=== PATIENT | male | born 1935 | race Caucasian/White ===

== ENCOUNTER 2022-12-24 07:57 | Observation (INO) | payer MEDICARE, SELFPAY ==
[2022-12-24] VITALS (16 sets, daily range): BP systolic 127–159; BP diastolic 64–83; PULSE 69–85; RESP 11–18; TEMP 36.6–36.7; O2SAT 90–98
--- NOTE | ~2022-12-24 | US_ITS ---
EXAMINATION: US carotid duplex BI DATE: 12/25/2022 12:38 INDICATION: Syncope TECHNIQUE: Grayscale, color Doppler, and pulsed Doppler images of the cervical carotid arteries were obtained. The degree of vessel stenosis is placed in one of the following categories: normal, <50%, 5 0-69%, >=70% but less than near-occlusion, near-occlusion, or total occlusion. Note that percent sten osis relative to normal distal artery lumen diameter is indirectly measured from velocity measurement s as described by Sheldon, et al. Radiology 2003; 229:340-346. COMPARISON: None. FINDINGS: RIGHT: The right common carotid artery (CCA) peak systolic velocity (PSV) is 91 cm/s. The right internal car otid artery (ICA) PSV is 65 cm/s. The right ICA end-diastolic velocity (EDV) is 14 cm/s. The right IC A/CCA PSV ratio is 0.7. Grayscale and color Doppler images yield an estimate of <50% diameter reducti on from plaque in the ICA. The external carotid artery (ECA) PSV is 112 cm/s. There is antegrade flow in the right vertebral artery. LEFT: The left CCA PSV is 98 cm/s. The left ICA PSV is 88 cm/s. The left ICA EDV is 18 cm/s. The left ICA/C CA PSV ratio is 0.9. Grayscale and color Doppler images yield an estimate of <50% diameter reduction from plaque in the ICA. The ECA PSV is 86 cm/s. There is antegrade flow in the left vertebral artery. IMPRESSION: 1. <50% stenosis in the right internal carotid artery. 2. <50% stenosis in the left internal carotid artery. Reviewed, dictated and finalized at location A.
--- NOTE | ~2022-12-24 | US_ITS ---
EXAMINATION: US art doppler w evangelist WOODARD DATE: 12/26/2022 14:47 INDICATION: Foot ulcers TECHNIQUE: Segmental pressures and plethysmographic and Doppler waveforms of the brachial and lower e xtremity arteries were obtained. COMPARISON: None. FINDINGS: Right and left brachial artery pressures of 132 mm Hg and 113 mm Hg, respectively, are concordant (no rmal difference <= 30 mmHg). The right and left high-thigh pressure indices unable to be obtained due to inability to occlude the vessels throughout either lower limb with the exception of at the right posterior tibial artery. Bilateral toe pressures were unable to be obtained due to swelling of the to es. The right ankle-brachial index (JEWELL) is 0.93 (normal >= 0.9-1) based solely upon the pressure in the right posterior tibial artery. Arterial waveforms are biphasic with brisk systolic upstrokes througho ut the arteries of the right lower limb. The left JEWELL is unable to be obtained due to inability to occlude the vessels at the left ankle. Constance rial waveforms are biphasic with brisk systolic upstrokes carotid arteries of the left lower limb. IMPRESSION: 1. Pressures unable to be obtained throughout either lower limb with the exception of the right poste rior tibial artery due to inability to occlude vessels and at the great toes due to significant steno sis. Right JEWELL within normal limits on only the impression the right posterior tibial artery. 2. Biphasic waveforms with brisk systolic upstrokes throughout the arteries of both lower limbs. Reviewed, dictated and finalized at location A. IMPRESSION: 1. Pressures unable to be obtained throughout either lower limb with the except ion of the right posterior tibial artery due to inability to occlude vessels an d at the great toes due to significant stenosis. Right JEWELL within normal limits on only the impression the right posterior tibial artery. 2. Biphasic waveforms with brisk systolic upstrokes throughout the arteries of both lower limbs.
--- NOTE | ~2022-12-24 | XR_ITS ---
EXAMINATION: XR knee RT min 4V DATE: 12/24/2022 09:34 INDICATION: Right knee pain, bruising and skin tear post fall TECHNIQUE: Anteroposterior, 2 oblique and crosstable lateral views of the right knee were obtained COMPARISON: None. FINDINGS: Alignment is normal. No fracture. At least moderate severity tricompartmental osteoarthritis with me dial and patellofemoral compartment predominance. No joint effusion/layering lipohemarthrosis. Soft t issue swelling with subcutaneous edema about the anterior and lateral aspects of the knee. No radiop aque foreign bodies. IMPRESSION: 1. 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 Reviewed, dictated and finalized at location A.
--- NOTE | ~2022-12-24 | US_ITS ---
EXAMINATION: US venous doppler [facility] DATE: 12/26/2022 14:47 INDICATION: Bilateral lower limb edema TECHNIQUE: Bradford scale images without and with compression and Doppler images of the bilateral lower e xtremity veins were obtained. COMPARISON: None FINDINGS: The bilateral peroneal veins are not visualized due to edema. The right common femoral vein, profunda femoral vein, femoral vein, popliteal vein, posterior tibial veins, and greater saphenous vein are patent. The left common femoral vein, profunda femoral vein, femoral vein, popliteal vein, posterior tibial v eins, and greater saphenous vein are patent. IMPRESSION: 1. Patent bilateral lower extremity veins. No evidence of deep venous thrombosis. Bilateral peroneal veins not visualized due to edema. Reviewed, dictated and finalized at location B. IMPRESSION: 1. Patent bilateral lower extremity veins. No evidence of deep venous thrombosi s. Bilateral peroneal veins not visualized due to edema.
--- NOTE | ~2022-12-24 | XR_ITS ---
EXAMINATION: XR chest 1V portable INDICATION: Weakness, transient alteration of awareness TECHNIQUE: Portable AP chest at 0830 hours COMPARISON: 03/09/2018 FINDINGS: The lungs are free of acute opacities. No pleural effusion or pneumothorax. A calcified nod ule of the left lower lobe is consistent with old granulomatous disease. The cardiomediastinal silhou ette is normal. Surgical changes are noted in the cervical spine. IMPRESSION: 1. No acute cardiopulmonary abnormality. Reviewed, dictated and finalized at location []
--- NOTE | 2022-12-24 08:06 | ECG_ITS ---
Measurements Intervals [place] Rate: 78 P: -26 OR: 169 QRS: 69 QRSD: 109 T: -48 QT: 353 QTc: 404 Interpretive Statements SINUS RHYTHM PROLONGED QT INTERVAL NONSPECIFIC ST & T-WAVE ABNORMALITY ABNORMAL ECG NO PREVIOUS ECG AVAILABLE FOR COMPARISON Electronically Signed On 12-24-2022 11:59:02 CDT by Jitendra Marte M.D.
[2022-12-24 08:31] LABS: Basophils Absolute Auto 0.1 K/mm3 (0.0-0.1); Basophils Percent Auto 0.5 % (0.2-1.2); Eosinophils Absolute Auto 0.1 K/mm3 (0-0.3); Eosinophils Percent Auto 0.6 % (0-4.4); Hematocrit 42.3 % (42.0-52.0); Hemoglobin 13.9 g/dL (14.0-18.0); Immature Granulocyte Absolute 0.11 K/mm3 (0.00-0.031); Lymphocytes Absolute Auto 1.65 K/mm3 (0.9-3.2); Lymphocytes Percent Auto 15.7 % (18.3-44.2); Mean Corpuscular HGB Conc 32.9 g/dl (32-36); Mean Corpuscular Hemoglobin 29.9 pg (26-34); Mean Platelet Volume 11.2 fl (7.4-10.4); Monocytes Absolute Auto 0.8 K/mm3 (0.1-0.6); Monocytes Percent Auto 7.2 % (2.6-8.5); Neutrophils Absolute Auto 7.9 K/mm3 (1.3-6.7); Platelet Count Result 185 k/mm3 (150-375); Red Blood Count 4.65 M/mm3 (4.6-6.20); Red Cell Distribution Width 13.2 % (11.5-14.5); White Blood Count 10.5 K/mm3 (4.5-10.0)
[2022-12-24 08:42] LABS: Alanine Aminotransferase 30 U/L (6-50); Albumin Level 4.3 g/dL (3.5-5.1); Alkaline Phosphatase 114 U/L (38-126); Anion Gap 9 mmol/L (8-16); Aspartate Amino Transferase 34 U/L (17-59); Blood Urea Nitrogen 35 mg/dL (9-20); Carbon Dioxide 36 mmol/L (22-30); Chloride 89 mmol/L (98-107); Estimated CRCL calculation 48 ml/min; Estimated Glomerular Filt Rate 52; Glucose 173 mg/dL (65-110); Potassium 2.6 mmol/L (3.4-5.0); Sodium 134 mmol/L (137-145)
--- NOTE | 2022-12-24 08:42 | ED.WEAKNESS ---
HPI - Weakness General Chief complaint: Weakness Stated complaint: weakness, glf, abd pain, nausea Time Seen by Provider: 12/24/22 08:42 Source: patient Mode of arrival: ambulatory Limitations: no limitations History of Present Illness HPI Narrative: Patient is an 87-year-old male with a history of atrial fibrillation, congestive heart failure, acid reflux, BPH and urinary retention, presenting to the emergency department for evaluation of weakness. Patient has had 2 near syncopal events over the past 24 hours. Early this morning, patient tried to ambulate to the bathroom before becoming weak, patient did require some assistance back to the restroom. Second time this morning patient did awaken to go to the bathroom, and was found weak unable to stand from the toilet. Nursing personnel at care facility did call EMS. Vital signs were stable in route. Patient with recent medication changes including increased doses of Lasix as well as additional medication that daughter is unsure of. Patient denies any focal weakness or numbness. No head trauma or loss of conscious. Denies associated chest pain, palpitations, dyspnea. Patient has a history of chronic lower extremity edema, slightly improved from baseline. He denies fever, chills, cough, abdominal pain, dysuria or hematuria. Related Data Allergies Allergy/AdvReac Type Severity Reaction Status Date / Time No Known Allergies Allergy Verified 12/24/22 08:15 Review of Systems Review of Systems: CONSTITUTIONAL: Denies fever, chills, or sweats. EYES: Denies visual changes, redness, or discharge. ENT: Denies rhinorrhea, congestion, sore throat, or otalgia. CARDIOVASCULAR: Denies chest pain, palpitations, or edema. RESPIRATORY: Denies cough or dyspnea. GASTROINTESTINAL: Denies abdominal pain, nausea, vomiting, or diarrhea. GENITOURINARY: Denies dysuria or hematuria. SKIN: Denies rash or itching. MUSCULOSKELETAL: Denies back pain, joint pain, or myalgia. NEUROLOGIC: Denies headache, numbness, reports generalized weakness PMF Family History Family History (Updated 03/14/16 @ 09:32 by DOCTOR UNKNOWN) Sibling Carcinoma of colon Family history of diabetes mellitus in first degree relative Family history of malignant neoplasm of urinary bladder Mother Acute myocardial infarction Other Cerebrovascular accident Diabetes mellitus Family history of Alzheimer's disease Family history of arthritis Family history of atrial fibrillation Family history of cardiovascular disease Family history of congestive heart failure Family history of hearing loss Family history of kidney disease Hypertension Social History Social History Smoking status: Former smoker Smoking end date: 06/29/1956 Alcohol intake: current Course Vital Signs Vital signs: Vital Signs Temperature 36.6 C 12/24/22 07:55 Pulse Rate 79 12/24/22 07:55 Respiratory Rate 18 12/24/22 07:55 Blood Pressure 152/73 H 12/24/22 07:55 Pulse Oximetry 97 12/24/22 07:55 Oxygen Delivery Room Air 12/24/22 07:55 Temperature 36.6 C 12/24/22 07:55 Pulse Rate 69 12/24/22 10:31 Respiratory Rate 14 12/24/22 10:31 Blood Pressure 145/74 H 12/24/22 10:31 Pulse Oximetry 95 12/24/22 10:31 Oxygen Delivery Room Air 12/24/22 07:55 MDM - Weakness MDM Narrative Medical decision making narrative: Patient is an 87-year-old presenting for evaluation of generalized weakness, 2 near syncopal events this morning. Patient with recent diuretic increase to his medication regimen. Time of assessment, ABCs are intact and vital signs are stable. Patient without any focal deficits on exam, does report some overlying right anterior knee tenderness which is chronic for him. No significant redness or effusion. Patient strength is intact. IV access obtained and labs were drawn. Laboratory results are notable for hypokalemia, hypochloremia likely related to the patient's diuretic use.
[2022-12-24 09:06] LABS: Magnesium 2.3 mg/dL (1.6-2.3); Phosphorus 3.3 mg/dL (2.5-4.5)
[2022-12-24] MEDS: POTASSIUM CHLORIDE 20 MEQ PACKET (FOR LIQUID) 40 MEQ PO (09:11)
[2022-12-24] MEDS: POTASSIUM CHLORIDE INJ 40 MEQ in SODIUM CHLORIDE 0.9% IV 500 ML 130 MEQ IVPB (09:14)
[2022-12-24 09:18] LABS: Troponin I < 0.012 ng/mL (0.000-0.034)
[2022-12-24 10:29] LABS: Appearance Urine Clear (Clear); Bacteria Urine None Seen /hpf; Bilirubin Urine Negative (Negative); Blood Urine Negative (Negative); Color Urine Yellow (Yellow); Glucose Urine UA Negative (Negative); Ketones Urine Trace mg/dL (Negative); Leukocyte Esterase Ur Trace LEU/UL (Negative); Nitrate Urine Negative (Negative); Non Pathogenic Casts 0-2; Protein Urine Negative (Negative); Specific Grav Ur 1.011 (1.001-1.035); Squamous Epithelial Cell Urine None seen /hpf (Few); WBC Urine 0-5 /hpf; pH Urine 7.5 (5.0-9.0)
[2022-12-24 10:51] LABS: Add Urine Microscopic? YES
[2022-12-24] MEDS: LACTATED RINGERS 1,000 ML 75 ML IV CONT (11:47)
[2022-12-24] MEDS: ONDANSETRON INJ 4 MG/2 ML VIAL IV PUSH (11:47)
[2022-12-24 12:05] LABS: Troponin I < 0.012 ng/mL (0.000-0.034)
--- NOTE | 2022-12-24 12:18 | ADMGEN ---
This patient, Robel Matthew, was admitted to 2 Medical Room 244-01. Patient/family oriented to hospital policies and general routines including ID bracelet, bed and alarms, visiting hours, pain management, procedures, bathroom and other care routines, personal items, smoking policy, room service/diet, and visiting hours. Information on how to activate the Rapid Response Team has been discussed. Patient/Family are encouraged to report perceived risks to care and to ask questions if they do not understand what they are told or what they should do.
[2022-12-24 15:21] LABS: Troponin I < 0.012 ng/mL (0.000-0.034)
[2022-12-24 16:31] LABS: Anion Gap 10 mmol/L (8-16); Blood Urea Nitrogen 32 mg/dL (9-20); Calcium 9.2 mg/dL (8.4-10.2); Carbon Dioxide 34 mmol/L (22-30); Chloride 91 mmol/L (98-107); Estimated CRCL calculation 56 ml/min; Estimated Glomerular Filt Rate > 60; Glucose 155 mg/dL (65-110); Potassium 3.6 mmol/L (3.4-5.0); Sodium 135 mmol/L (137-145)
--- NOTE | 2022-12-24 16:56 | PM.IMHP ---
H&P: HPI History of Present Illness Date/Time: 12/24/22 16:56 Chief Complaint: falls Narrative: This is an 87 year old gentleman with a PMH of atrial fibrillation on ASA, CHF with unknown EF, acid reflux, and BPH with urinary retention. He presented to the ED today for evaluation of weakness and recent recurrent falls. He was unable to get off of the toilet today which prompted staff at [facility] to call EMS. He had recently fallen in his apartment and was down for an unknown amount of time during which he developed ulcerations on his feet from rubbing them on the carpet. It is difficult to complete a full ROS with him as he is severely hard of hearing and his hearing aids are not charged. His daughter, Nona has brought his cash applications manager and the remainder of the H&P information is gathered from her account. She reports that he was recently started on ciprofloxacin antibiotic 12/19 by his PCP for a UTI. She says the urinalysis looked a little bad per provider and patient had some altered mental status. He also had recently had some severe lower leg edema for which his commissions coordinator at [facility] prescribed a 5 day course of metolazone 10 mg daily on top of his daily furosemide 40 mg tablet. His swelling is much improved per her reports but his legs still appear large without pitting edema. Finally, she reports that his PCP recently switched him from Lexapro to Effexor because he was reporting decreased mood and anhedonia. She feels that many adjustments have happened at once so it is hard to pinpoint what's causing his weakness. In the ED labs were significant for mild leukocytosis 10.5, hgb 13.9, K 2.6, BUN 35 without Cr elevation, and U/A with trace ketones and leukocytes. His EKG shows NSR with prolonged QT interval with nonspecific ST and T wave abnormality. He is being admitted for a syncopal workup, concerns for dehydration, and hypokalemia with EKG changes. Review of Systems Review of Systems: ROS unobtainable: Yes other (limited because of hearing impairment with no assist device) Constitutional: Constitutional: Reports weakness ENT: Comments: impaired hearing Cardiovascular: Cardiovascular: Reports pedal edema and Reports leg edema Genitourinary: Genitourinary: Reports urinary incontinence Integumentary/Breasts: Skin/Breast: Reports wounds Neurologic: Reports system reviewed and no additional complaints, except as documented Psychiatric: Psychiatric: Reports no additional psychiatric complaints [facility] Past Medical History Medical History (Updated 12/24/22 @ 21:23 by Cyn Lagunas APRN) Acid reflux Allergies Anemia Anxiety Bilateral lower extremity edema BPH (benign prostatic hyperplasia) Congestive heart failure (CHF) Depression Essential (primary) hypertension Malignant neoplasm of prostate Mixed hyperlipidemia Paroxysmal atrial fibrillation Vitamin B 12 deficiency Surgical History Surgical History (Updated 12/24/22 @ 21:20 by Cyn Lagunas APRN) Hx of fusion of cervical spine Family History Family History Sibling Carcinoma of colon Family history of diabetes mellitus in first degree relative Family history of malignant neoplasm of urinary bladder Mother Acute myocardial infarction Other Cerebrovascular accident Diabetes mellitus Family history of Alzheimer's disease Family history of arthritis Family history of atrial fibrillation Family history of cardiovascular disease Family history of congestive heart failure Family history of hearing loss Family history of kidney disease Hypertension Social History Social History Smoking status: Never smoker Smoking end date: 06/29/1956 Alcohol intake: never Substance use: never Substance use type: does not use Lack of Transportation: No Lack of Food: Never True Current Housing: I Have Housing Concerned About Future
[2022-12-24] MEDS: ACETAMINOPHEN 325 MG TABLET 650 MG PO (21:45)
[2022-12-24] MEDS: FLECAINIDE ACETATE 100 MG TABLET PO (21:45)
[2022-12-25] VITALS (13 sets, daily range): BP systolic 93–126; BP diastolic 61–79; PULSE 61–83; RESP 18; TEMP 36.3–36.7; O2SAT 97
--- NOTE | 2022-12-25 | ECHO_ITS ---
Patient Info Name: Robel Matthew Age: 87 years : 1935 Gender: Male Ht: 71 in Wt: 250 lbs BSA: 2.42 m2 HR: 65 bpm BP: 159 / 83 mmHg Heart Rhythm: Sinus Rhythm Technical Quality: Fair Exam Date: 12/25/2022 10:05 AM Exam Location: [facility] Pulmonary Patient Status: Outpatient Admit Date: 12/24/2022 Staff Ordering Physician: Cyn Lagunas APRN Floor Coverings Installer: Montserrat Blackburn RDCS Attending Provider: Viviana Ly MD Referring Physician: Bebo FLORES; Exam Type: CA echo doppler w bubble study Study Info Indications - syncop/chf Complete two-dimensional, color flow and Doppler transthoracic echocardiogram is performed with agitated saline. Contrast/Agitated Saline Contrast/Ag. Saline: Agitated Saline Amount: 10.00 ml Summary 1. Left ventricular chamber dimension is normal. 2. Left ventricular systolic function is normal, estimated at 60-65%. 3. There is mild concentric increased left ventricular wall thickness. 4. The left ventricular diastolic function is grade I diastolic dysfunction. 5. Left atrial chamber dimension is mildly enlarged. 6. There is moderate aortic valve sclerosis. 7. No pulmonary hypertension, estimated pulmonary arterial systolic pressure is 9 mmHg. Left Ventricle Tissue doppler E/e' is not performed. Left ventricular chamber dimension is normal. Left ventricular systolic function is normal, estimated at 60-65%. There is mild concentric increased left ventricular wall thickness. The left ventricular diastolic function is grade I diastolic dysfunction. Right Ventricle Right ventricular systolic function is normal and with normal TAPSE 2.3 cm. Right ventricular chamber dimension is normal. Left Atria Left atrial chamber dimension is mildly enlarged. Right Atria Right atrial chamber dimension is normal. Atrial Septum Agitated saline injection with and without valsalva maneuver opacified right side cardiac chamber without shunt to left side cardiac chambers. Intact interatrial septum visualized by 2D and agitated saline imaging. Aortic Valve The aortic valve is trileaflet. There is moderate aortic valve sclerosis. There is no aortic valve stenosis. There is no aortic valve regurgitation. Pulmonic Valve There is no pulmonic regurgitation. Mitral Valve There is no mitral valve stenosis. There is no mitral valve regurgitation. Tricuspid Valve There is no tricuspid valve regurgitation. No pulmonary hypertension, estimated pulmonary arterial systolic pressure is 9 mmHg. Pericardium/Pleural There is no pericardial effusion. Inferior Vena Cava Normal inferior vena cava with >50% collapse upon inspiration consistent with normal right atrial pressure, 5 mmHg. Aorta The aortic root size at the sinus of Valsalva is normal. Left Ventricular Outflow Tract Name Value Normal LVOT 2D LVOT Diameter 2.2 cm LVOT Doppler LVOT Peak Gradient 5 mmHg LVOT Mean Gradient 3 mmHg LVOT VTI 31 cm LVOT VTI/AV VTI Ratio 1.1 LVOT Stroke Volume 120 ml LVOT CO
[2022-12-25] MEDS: LACTATED RINGERS 1,000 ML 75 ML IV CONT ×2 (01:07→19:58)
--- NOTE | 2022-12-25 05:11 | PC.NURSE ---
Addendum entered by Mat Wilson RN 12/25/22 05:16: pt also refusing to have vitals this morning. Original Note: Pt refusing blood draw this morning.
[2022-12-25 08:21] LABS: Cholesterol 142 mg/dL (0-200); HDL Direct 49 mg/dL; Triglycerides 132 mg/dL (<150)
[2022-12-25 08:24] LABS: Hemoglobin A1C 6.2 % (<5.7)
[2022-12-25 08:30] LABS: NT Pro B Type Natriuretic Pept 411 pg/mL (19.9-100)
[2022-12-25 08:32] LABS: LDL Cholesterol Direct 58 mg/dL
[2022-12-25 08:53] LABS: Iron 95 ug/dL (49-181)
[2022-12-25 09:02] LABS: Percent Iron Saturation 32 % (20-50)
[2022-12-25] MEDS: ACETAMINOPHEN 325 MG TABLET 650 MG PO ×4 (09:16→21:20)
[2022-12-25] MEDS: ASPIRIN 81 MG ENTERIC TABLET PO (09:16)
[2022-12-25] MEDS: cycloSPORINE 0.4 ML OPHTH SOLUTION 1 DROP EACH EYE ×2 (09:17→16:56)
[2022-12-25] MEDS: ATORVASTATIN 20 MG TABLET PO (09:17)
[2022-12-25] MEDS: FLECAINIDE ACETATE 100 MG TABLET PO ×2 (09:17→21:20)
[2022-12-25] MEDS: DOXAZOSIN MESYLATE 4 MG TABLET PO (09:17)
[2022-12-25] MEDS: FUROSEMIDE 40 MG TABLET PO (09:18)
[2022-12-25] MEDS: POTASSIUM CHLORIDE 20 MEQ ER TABLET 40 MEQ PO (09:18)
[2022-12-25] MEDS: VENLAFAXINE HCL XR 75 MG CAP.ER.24H PO (09:18)
[2022-12-25] MEDS: TAMSULOSIN HCL 0.4 MG CAPSULE PO (09:18)
[2022-12-25] MEDS: FLUTICASONE PROPIONATE 0.05% NA SPR 16 GM BTL (*BKC) 2 SPRAY NASAL (09:18)
[2022-12-25 11:01] LABS: Anion Gap 4 mmol/L (8-16); Blood Urea Nitrogen 24 mg/dL (9-20); Calcium 9.2 mg/dL (8.4-10.2); Carbon Dioxide 37 mmol/L (22-30); Chloride 95 mmol/L (98-107); Estimated CRCL calculation 68 ml/min; Estimated Glomerular Filt Rate > 60; Glucose 127 mg/dL (65-110); Magnesium 2.4 mg/dL (1.6-2.3); Potassium 3.2 mmol/L (3.4-5.0); Sodium 136 mmol/L (137-145)
[2022-12-25 11:05] LABS: Hematocrit 42.2 % (42.0-52.0); Hemoglobin 13.7 g/dL (14.0-18.0); Mean Corpuscular HGB Conc 32.5 g/dl (32-36); Mean Corpuscular Hemoglobin 29.8 pg (26-34); Mean Corpuscular Volume 91.7 fl (80-100); Platelet Count Result 203 k/mm3 (150-375); Red Cell Distribution Width 13.2 % (11.5-14.5); White Blood Count 8.6 K/mm3 (4.5-10.0)
--- NOTE | 2022-12-25 15:27 | WPDPN ---
Progress Note: A&P Assessment and Plan (1) Dehydration: Code(s): E86.0 - Dehydration Status: Acute Assessment and Plan: -BUN elevated without Cr elevation and recent increase of diuretic therapies. -Cautious hydration with LR at 75 ml per hour. -Per patient's daughter, patient had 5 days of metolazone 10 mg PO daily with EOT for Thursday, 12/26 per powertrain control systems engineer. Considering vast improvement in BLE edema and concerns for overdiuresis will stop remaining doses of metolazone. Can continue lasix 40 mg BID. -daily labs ordered 12/25/2022 interval history: patient daughter is present in ED, patient stats he feels weak and dizzy when he is getting up from lying or sitting position, and weakness, concerning for dehydration, will hold lasix, will monitor, patient had cardiac echo it showed normal LV function with grade I diastolic dysfunction, patient is working with PT/OT and stats feeling little better, will benefit going to acute rehab, patient daughter is present the room, will monitor. (2) Acute hypokalemia: Code(s): E87.6 - Hypokalemia Status: Acute Assessment and Plan: -Electrolyte depletion with prolonged QTc, K 2.6. Patient received K+ 40 meq PO and 40 meq IV. BMP this afternoon is 3.6. Increased daily dose of K+ from 20 meq to 40 meq. -Telemetry ordered. (3) Generalized weakness: Code(s): R53.1 - Weakness Status: Acute Assessment and Plan: -order orthostatic vital signs for the morning. -frequent falls. Work up for syncope with carotid duplex US. -Will order PT/OT consult (4) Paroxysmal atrial fibrillation: Code(s): I48.0 - Paroxysmal atrial fibrillation Status: Acute Assessment and Plan: -Rate controlled for the last 10 years on flecainide 100 mg PO BID. Restarted now. -Not on anticoagulation besides ASA 81 mg due to frequent falls and risk of bleed -EKG with NSR, on telemetry (5) Mixed hyperlipidemia: Code(s): E78.2 - Mixed hyperlipidemia Status: Acute Assessment and Plan: -Will obtain lipid panel and hemoglobin a1c. --on daily atorvastatin 20 mg, restarted (6) Essential (primary) hypertension: Code(s): I10 - Essential (primary) hypertension Status: Acute Assessment and Plan: -restarted home Doxazosin 4 mg PO daily and lasix 40 mg PO BID. -Blood pressures reviewed. SBP 140's. (7) Congestive heart failure (CHF): Qualifiers: Heart failure type: right-sided Heart failure chronicity: acute on chronic Qualified Code(s): I50.813 - Acute on chronic right heart failure Code(s): I50.9 - Heart failure, unspecified Status: Acute Assessment and Plan: -Follows with cardiology at [facility]. Daughter thinks last ECHO was 2 years ago, unsure of EF. Will obtain ECHO during this admission. -BNP ordered for the am. Troponin negative. EKG with QTc prolongation likely related to hypokalemia. Avoid sergio blocking agents. -Recent increase in BLE edema that has improved with addition of metolazone. (8) BPH (benign prostatic hyperplasia): Qualifiers: Lower urinary tract symptom presence: symptoms present Lower urinary tract symptom detail: urinary retention Qualified Code(s): N40.1 - Benign prostatic hyperplasia with lower urinary tract symptoms; R33.8 - Other retention of urine Code(s): N40.0 - Benign prostatic hyperplasia without lower urinary tract symptoms Status: Acute Assessment and Plan: -Home medication fesoterodine 4 mg PO daily and tamsulosin 0.4 mg PO daily restarted. -Reports frequency with recent increase in diuretics. -Can obtain post void residuals to monitor of retention -recently was started on cipro (12/19) for 5 day course for concerns for UTI. Today would have been EOT. U/A is unremarkable and patient is asymptomatic besides fatigue. Monitor for fevers and worsening leukocytosis. (9) Anemia: Qualifiers: Anemia type: B12 deficienc
--- NOTE | 2022-12-25 16:32 | PCPTNOTE ---
On 12/25/22, the student, [Lori Benitez], provided care and completed [facility] documentation on this patient. I have reviewed the student's documentation and agree with the findings.
[2022-12-25] MEDS: POTASSIUM CHLORIDE 20 MEQ PACKET (FOR LIQUID) 40 MEQ PO (16:56)
[2022-12-26] VITALS (15 sets, daily range): BP systolic 98–145; BP diastolic 59–70; PULSE 54–81; RESP 12–20; TEMP 36.2–36.4; O2SAT 96–99
[2022-12-26 05:40] LABS: Anion Gap 3 mmol/L (8-16); Blood Urea Nitrogen 24 mg/dL (9-20); Calcium 8.8 mg/dL (8.4-10.2); Carbon Dioxide 38 mmol/L (22-30); Chloride 94 mmol/L (98-107); Estimated CRCL calculation 70 ml/min; Estimated Glomerular Filt Rate > 60; Glucose 106 mg/dL (65-110); Magnesium 2.3 mg/dL (1.6-2.3); Potassium 3.3 mmol/L (3.4-5.0); Sodium 135 mmol/L (137-145)
[2022-12-26] MEDS: LACTATED RINGERS 1,000 ML 75 ML IV CONT (09:33)
[2022-12-26] MEDS: FLUTICASONE PROPIONATE 0.05% NA SPR 16 GM BTL (*BKC) 2 SPRAY NASAL (09:33)
[2022-12-26] MEDS: cycloSPORINE 0.4 ML OPHTH SOLUTION 1 DROP EACH EYE ×2 (09:33→18:02)
[2022-12-26] MEDS: POTASSIUM CHLORIDE 20 MEQ ER TABLET 40 MEQ PO (09:34)
[2022-12-26] MEDS: ACETAMINOPHEN 325 MG TABLET 650 MG PO ×3 (09:35→18:01)
[2022-12-26] MEDS: ATORVASTATIN 20 MG TABLET PO (09:35)
[2022-12-26] MEDS: ASPIRIN 81 MG ENTERIC TABLET PO (09:35)
[2022-12-26] MEDS: FLECAINIDE ACETATE 100 MG TABLET PO ×2 (09:35→20:56)
[2022-12-26] MEDS: DOXAZOSIN MESYLATE 4 MG TABLET PO (09:36)
[2022-12-26] MEDS: VENLAFAXINE HCL XR 75 MG CAP.ER.24H PO (09:36)
[2022-12-26] MEDS: TAMSULOSIN HCL 0.4 MG CAPSULE PO (09:36)
[2022-12-26 09:51] LABS: Hematocrit 42.6 % (42.0-52.0); Hemoglobin 13.7 g/dL (14.0-18.0); Mean Corpuscular HGB Conc 32.2 g/dl (32-36); Mean Corpuscular Volume 93.4 fl (80-100); Mean Platelet Volume 12.3 fl (7.4-10.4); Platelet Count Result 189 k/mm3 (150-375); Red Blood Count 4.56 M/mm3 (4.6-6.20); Red Cell Distribution Width 13.1 % (11.5-14.5); White Blood Count 8.5 K/mm3 (4.5-10.0)
--- NOTE | 2022-12-26 10:24 | PM.IMPN ---
Progress Note: A&P Assessment and Plan (1) Dehydration: Code(s): E86.0 - Dehydration Status: Acute Assessment and Plan: -BUN elevated without Cr elevation and recent increase of diuretic therapies. -Cautious hydration with LR at 75 ml per hour. -Per patient's daughter, patient had 5 days of metolazone 10 mg PO daily with EOT for Thursday, 12/26 per calciminer. Considering vast improvement in BLE edema and concerns for overdiuresis will stop remaining doses of metolazone. Can continue lasix 40 mg BID. -daily labs ordered 12/25/2022 interval history: patient daughter is present in ED, patient stats he feels weak and dizzy when he is getting up from lying or sitting position, and weakness, concerning for dehydration, will hold lasix, will monitor, patient had cardiac echo it showed normal LV function with grade I diastolic dysfunction, patient is working with PT/OT and stats feeling little better, will benefit going to acute rehab, patient daughter is present the room, will monitor. 12/26/2022: 87-year-old with past medical history of atrial fibrillation on aspirin congestive heart failure with unknown ejection fraction GERD BPH with urinary retention presented with weakness and recurrent falls. [place] lives [place] and was unable to get off the toilet today after he slid down. He had developed ulcerations on his feet due to his recent falls. Altered mental status recent use of metolazone on top of his diuretic furosemide. EKG with normal sinus rhythm with prolonged QT. admitted for syncope dehydration. Mild leukocytosis 10.5 on admission which has resolved. Severely hypokalemic at 2.6 on admission continue replacement. BNP at 411- troponins. TSH is normal. UA is negative for UTI. Carotid with insignificant stenosis bilaterally no bony injury noted. Right knee with moderately severe osteoarthritis. Chest x-ray with no acute cardiopulmonary abnormality. Echo 12/25/2022: EF 60-65% grade 1 diastolic dysfunction moderate aortic valve sclerosis no other valvular abnormality no pulmonary hypertension history of paroxysmal atrial fibrillation. History of cervical diskectomy history of prostate cancer BPH depressive disorder. Stop IV fluid today. Orthostatic vitals checked. Venous duplex and arterial duplex for peripheral artery disease (2) Acute hypokalemia: Code(s): E87.6 - Hypokalemia Status: Acute Assessment and Plan: -Electrolyte depletion with prolonged QTc, K 2.6. Patient received K+ 40 meq PO and 40 meq IV. BMP this afternoon is 3.6. Increased daily dose of K+ from 20 meq to 40 meq. -Telemetry ordered. (3) Generalized weakness: Code(s): R53.1 - Weakness Status: Acute Assessment and Plan: -order orthostatic vital signs for the morning. -frequent falls. Work up for syncope with carotid duplex US. -Will order PT/OT consult (4) Paroxysmal atrial fibrillation: Code(s): I48.0 - Paroxysmal atrial fibrillation Status: Acute Assessment and Plan: -Rate controlled for the last 10 years on flecainide 100 mg PO BID. Restarted now. -Not on anticoagulation besides ASA 81 mg due to frequent falls and risk of bleed -EKG with NSR, on telemetry (5) Mixed hyperlipidemia: Code(s): E78.2 - Mixed hyperlipidemia Status: Acute Assessment and Plan: -Will obtain lipid panel and hemoglobin a1c. --on daily atorvastatin 20 mg, restarted (6) Essential (primary) hypertension: Code(s): I10 - Essential (primary) hypertension Status: Acute Assessment and Plan: -restarted home Doxazosin 4 mg PO daily and lasix 40 mg PO BID. -Blood pressures reviewed. SBP 140's. (7) Congestive heart failure (CHF): Qualifiers: Heart failure type: right-sided Heart failure chronicity: acute on chronic Qualified Code(s): I50.813 - Acute on chronic right heart failure Code(s): I50.9 - Heart failure, unspecified Status: Acute
[2022-12-27] VITALS (9 sets, daily range): BP systolic 113–139; BP diastolic 59–73; PULSE 61–71; RESP 16–18; TEMP 36.4–36.7; O2SAT 96–99
[2022-12-27 04:42] LABS: Mean Corpuscular HGB Conc 32.5 g/dl (32-36); Mean Corpuscular Volume 92.4 fl (80-100); Mean Platelet Volume 11.2 fl (7.4-10.4); Platelet Count Result 175 k/mm3 (150-375); Red Blood Count 4.33 M/mm3 (4.6-6.20); Red Cell Distribution Width 12.9 % (11.5-14.5); White Blood Count 8.1 K/mm3 (4.5-10.0)
[2022-12-27 04:53] LABS: Anion Gap 3 mmol/L (8-16); Blood Urea Nitrogen 23 mg/dL (9-20); Calcium 8.8 mg/dL (8.4-10.2); Carbon Dioxide 35 mmol/L (22-30); Chloride 98 mmol/L (98-107); Estimated CRCL calculation 64 ml/min; Estimated Glomerular Filt Rate > 60; Glucose 108 mg/dL (65-110); Magnesium 2.1 mg/dL (1.6-2.3); Potassium 3.3 mmol/L (3.4-5.0); Sodium 136 mmol/L (137-145)
[2022-12-27] MEDS: TAMSULOSIN HCL 0.4 MG CAPSULE PO (09:15)
[2022-12-27] MEDS: ERGOCALCIFEROL 50,000 UNITS CAPSULE 50000 UNITS FEED TUBE (09:15)
[2022-12-27] MEDS: VENLAFAXINE HCL XR 75 MG CAP.ER.24H PO (09:15)
[2022-12-27] MEDS: cycloSPORINE 0.4 ML OPHTH SOLUTION 1 DROP EACH EYE ×2 (09:15→16:54)
[2022-12-27] MEDS: POTASSIUM CHLORIDE 20 MEQ ER TABLET 40 MEQ PO (09:15)
[2022-12-27] MEDS: ASPIRIN 81 MG ENTERIC TABLET PO (09:15)
[2022-12-27] MEDS: DOXAZOSIN MESYLATE 4 MG TABLET PO (09:15)
[2022-12-27] MEDS: FLECAINIDE ACETATE 100 MG TABLET PO (09:15)
[2022-12-27] MEDS: FLUTICASONE PROPIONATE 0.05% NA SPR 16 GM BTL (*BKC) 2 SPRAY NASAL (09:16)
[2022-12-27] MEDS: ATORVASTATIN 20 MG TABLET PO (09:16)
[2022-12-27] MEDS: ACETAMINOPHEN 325 MG TABLET 650 MG PO ×3 (09:20→16:53)
--- NOTE | 2022-12-27 13:02 | PM.IMPN ---
Progress Note: A&P Assessment and Plan (1) Dehydration: Code(s): E86.0 - Dehydration Status: Acute Assessment and Plan: -BUN elevated without Cr elevation and recent increase of diuretic therapies. -Cautious hydration with LR at 75 ml per hour. -Per patient's daughter, patient had 5 days of metolazone 10 mg PO daily with EOT for Thursday, 12/26 per clinical rehab liaison. Considering vast improvement in BLE edema and concerns for overdiuresis will stop remaining doses of metolazone. Can continue lasix 40 mg BID. -daily labs ordered 12/25/2022 interval history: patient daughter is present in ED, patient stats he feels weak and dizzy when he is getting up from lying or sitting position, and weakness, concerning for dehydration, will hold lasix, will monitor, patient had cardiac echo it showed normal LV function with grade I diastolic dysfunction, patient is working with PT/OT and stats feeling little better, will benefit going to acute rehab, patient daughter is present the room, will monitor. 12/26/2022: 87-year-old with past medical history of atrial fibrillation on aspirin congestive heart failure with unknown ejection fraction GERD BPH with urinary retention presented with weakness and recurrent falls. He lives [place] and was unable to get off the toilet today after he slid down. He had developed ulcerations on his feet due to his recent falls. Altered mental status recent use of metolazone on top of his diuretic furosemide. EKG with normal sinus rhythm with prolonged QT. admitted for syncope dehydration. Mild leukocytosis 10.5 on admission which has resolved. Severely hypokalemic at 2.6 on admission continue replacement. BNP at 411- troponins. TSH is normal. UA is negative for UTI. Carotid with insignificant stenosis bilaterally no bony injury noted. Right knee with moderately severe osteoarthritis. Chest x-ray with no acute cardiopulmonary abnormality. Echo 12/25/2022: EF 60-65% grade 1 diastolic dysfunction moderate aortic valve sclerosis no other valvular abnormality no pulmonary hypertension history of paroxysmal atrial fibrillation. History of cervical diskectomy history of prostate cancer BPH depressive disorder. Stop IV fluid today. Orthostatic vitals checked. Venous duplex and arterial duplex for peripheral artery disease 12/27/2022:87-year-old with past medical history of atrial fibrillation on aspirin congestive heart failure with unknown ejection fraction GERD BPH with urinary retention presented with weakness and recurrent falls. He lives [place] and was unable to get off the toilet today after he slid down. He had developed ulcerations on his feet due to his recent falls. Altered mental status recent use of metolazone on top of his diuretic furosemide. EKG with normal sinus rhythm with prolonged QT. admitted for syncope dehydration. Mild leukocytosis 10.5 on admission which has resolved. Severely hypokalemic at 2.6 on admission continue replacement. BNP at 411- troponins. TSH is normal. UA is negative for UTI. Carotid with insignificant stenosis bilaterally no bony injury noted. Right knee with moderately severe osteoarthritis. Chest x-ray with no acute cardiopulmonary abnormality. Echo 12/25/2022: EF 60-65% grade 1 diastolic dysfunction moderate aortic valve sclerosis no other valvular abnormality no pulmonary hypertension history of paroxysmal atrial fibrillation. History of cervical diskectomy history of prostate cancer BPH depressive disorder. Stop IV fluid today. Venous duplex negative for DVT. Arterial duplex reviewed. Orthostatic vitals was positive. Which is improved today. Diuretics on hold. PT OT note reviewed. He is recommended to have home health PT OT. He might not be safe to live by himself because of history of recurrent falls. Care coordination discussed further placement for him. Will give an extra dose of potassium today for his hypokalemia. (2) Acute hypokalemia:
--- NOTE | 2022-12-27 14:35 | PM.DS ---
DS: Admitting Diagnosis Discharge Date 12/27/2022 Admitting Diagnosis Syncope DS: Discharge Diagnosis Discharge Diagnosis (1) Dehydration: Code(s): E86.0 - Dehydration Status: Acute (2) Acute hypokalemia: Code(s): E87.6 - Hypokalemia Status: Acute (3) Generalized weakness: Code(s): R53.1 - Weakness Status: Acute (4) Paroxysmal atrial fibrillation: Code(s): I48.0 - Paroxysmal atrial fibrillation Status: Acute (5) Mixed hyperlipidemia: Code(s): E78.2 - Mixed hyperlipidemia Status: Acute (6) Essential (primary) hypertension: Code(s): I10 - Essential (primary) hypertension Status: Acute (7) Congestive heart failure (CHF): Qualifiers: Heart failure type: right-sided Heart failure chronicity: acute on chronic Qualified Code(s): I50.813 - Acute on chronic right heart failure Code(s): I50.9 - Heart failure, unspecified Status: Acute (8) BPH (benign prostatic hyperplasia): Qualifiers: Lower urinary tract symptom presence: symptoms present Lower urinary tract symptom detail: urinary retention Qualified Code(s): N40.1 - Benign prostatic hyperplasia with lower urinary tract symptoms; R33.8 - Other retention of urine Code(s): N40.0 - Benign prostatic hyperplasia without lower urinary tract symptoms Status: Acute (9) Anemia: Qualifiers: Anemia type: B12 deficiency Vitamin B12 deficiency anemia type: unspecified B12 deficiency Qualified Code(s): D51.9 - Vitamin B12 deficiency anemia, unspecified Code(s): D64.9 - Anemia, unspecified Status: Acute (10) Bilateral lower extremity edema: Code(s): R60.0 - Localized edema Status: Acute (11) Acid reflux: Code(s): K21.9 - Gastro-esophageal reflux disease without esophagitis Status: Acute DS: Summary Hospital Course Hospital Course: 87-year-old with past medical history of atrial fibrillation on aspirin, congestive heart failure with unknown ejection fraction GERD BPH with urinary retention presented with weakness and recurrent falls.? He lives [place] and was unable to get off the toilet today after he slid down.? He had developed ulcerations on his feet due to his recent falls.? Altered mental status recent use of metolazone on top of his diuretic furosemide.? EKG with normal sinus rhythm with prolonged QT. admitted for syncope dehydration.? Mild leukocytosis 10.5 on admission which has resolved.? Severely hypokalemic at 2.6 on admission continue replacement.? BNP at 411- troponins.? TSH is normal.? UA is negative for UTI.? Carotid with insignificant stenosis bilaterally no bony injury noted.? Right knee with moderately severe osteoarthritis.? Chest x-ray with no acute cardiopulmonary abnormality.? Echo 12/25/2022: EF 60-65% grade 1 diastolic dysfunction moderate aortic valve sclerosis no other valvular abnormality no pulmonary hypertension history of paroxysmal atrial fibrillation.? History of cervical diskectomy history of prostate cancer BPH depressive disorder.? Stop IV fluid today.? Venous duplex negative for DVT.? Arterial duplex reviewed.? Orthostatic vitals was positive.? Which is improved with? Diuretics on hold.? PT OT note reviewed.? He is recommended to have home health PT OT.? Which will be arranged. Care coordination involved. PT OT evaluated go back to his living facility with home health arrangement. Time Spent with Patient Time attestation: Total time spent providing and/or coordinating discharge services: 40 minutes Exam Narrative: Patient is comfortable, NAD HEENT: eyes are clear and none icteric LUNGS: Normal respiratory effort ABD: Distended Lower extremities: Bilateral lower extremity edema. Foot ulcerations on the sole, wrapped with brett wraps SKIN: nonjaundiced Neuro: grossly intact. DS: Data Data Completed and Pending Labs on day of discharge: Labs from last 24
== END 2022-12-27 17:21 ==
LOC: ANHED 10:50 → ANH2MED 11:44
PROVIDERS: Family Medicine; Nurse Practitioner Acute Care; Admitting Provider Family Medicine; Emergency Provider Emergency Medicine; PCP Family Medicine; Visit Provider Internal Medicine
DX: E86.0 Dehydration (principal); E87.6 Hypokalemia; R53.1 Weakness; I48.0 Paroxysmal atrial fibrillation; E78.2 Mixed hyperlipidemia; R55 Syncope and collapse; I50.813 Acute on chronic right heart failure; N40.1 Benign prostatic hyperplasia with lower urinary tract symptoms; R33.8 Other retention of urine; D51.9 Vitamin B12 deficiency anemia, unspecified; R60.0 Localized edema; K21.9 Gastro-esophageal reflux disease without esophagitis; R41.82 Altered mental status, unspecified; D72.829 Elevated white blood cell count, unspecified; L97.529 Non-pressure chronic ulcer of other part of left foot with unspecified severity; L97.519 Non-pressure chronic ulcer of other part of right foot with unspecified severity; E87.8 Other disorders of electrolyte and fluid balance, not elsewhere classified; R77.8 Other specified abnormalities of plasma proteins; I35.8 Other nonrheumatic aortic valve disorders; R94.31 Abnormal electrocardiogram [ECG] [EKG]; M17.11 Unilateral primary osteoarthritis, right knee; F10.90 Alcohol use, unspecified, uncomplicated; Z87.891 Personal history of nicotine dependence; Z79.1 Long term (current) use of non-steroidal anti-inflammatories (NSAID); Z79.82 Long term (current) use of aspirin; Z79.51 Long term (current) use of inhaled steroids; Z79.899 Other long term (current) drug therapy
CPT/HCPCS: 36415; 71045; 73564; 80048; 80053; 80061; 81001; 82607; 82728; 83036; 83540; 83550; 83735; 83880; 84100; 84443; 84484; 85025; 85027; 93005; 93306; 93880; 93923; 93970; 96361; 96374; 96375; 97110; 97116; 97161; 97165; 97535; 99285; A9270; G0378; J2405; J3480; J7040; J7120

== ENCOUNTER 2023-01-19 21:47 | Emergency (ER) | payer MEDICARE, SELFPAY ==
[2023-01-19] VITALS (8 sets, daily range): BP systolic 159–167; BP diastolic 87–93; PULSE 72–80; RESP 13–18; TEMP 36.3; O2SAT 97–100
--- NOTE | ~2023-01-19 | CT_ITS ---
CT head without contrast Indication: Head injury COMPARISON: 03/09/2018 Technique: Serial scans were obtained through the brain without the administration of contrast. Dose reduction technique was used on this scan by utilizing automated exposure control and iterative recon struction technique. The dose-length product (DLP) was 756.67 mGy-cm. Findings: There is no evidence of intracranial hemorrhage, mass lesion, or acute infarct. The ventri cles and subarachnoid spaces are dilated, consistent with moderate atrophy. Low attenuation regions are seen within the periventricular white matter bilaterally, likely representing changes from chroni c microvascular ischemic disease. There is no evidence of edema, mass effect or midline shift. The visualized paranasal sinuses and mastoid air cells are clear. Impression: No intracranial hemorrhage, mass, or acute infarct. Atrophy and chronic white matter changes, as above. Reviewed, dictated and finalized at location . Impression: No intracranial hemorrhage, mass, or acute infarct. Atrophy and chronic white matter changes, as above.
--- NOTE | ~2023-01-19 | CT_ITS ---
Noncontrast CT scan of the cervical spine Technique: Multiple contiguous axial [address] images of the cervical spine were obtained and rec onstructed in 2D sagittal and coronal planes on the acquisition scanner. Dose reduction technique was used on this scan by utilizing automated exposure control, adjustment of the mA and/or kV according to patient size. The dose-length product (DLP) was 549.71 mGy-cm. Clinical History: Pain Findings: No acute fracture seen. Minimal grade 1 anterolisthesis of C2 over C3 present. There is ant erior fusion from C4 through C7, with interbody fusion devices at the C4-C5, C5-C6, and C6-C7 disc sp aces. There is advanced degenerative disc narrowing at C3-C4. There is left facet arthropathy at C2-C3, no definite neural foraminal narrowing. There is disc osteo phyte complex resulting in mild right neural foraminal narrowing at C3-C4. There is disc osteophyte c omplex with bilateral neural foraminal narrowing at C4-C5. There is severe right neural foraminal daniela rowing at C5-C6, with disc osteophyte complex and facet arthropathy present. Probable moderate left n eural foraminal narrowing at this level. There is mild disc osteophyte complex at C6-C7. There is pro bable mild canal stenosis at C4-C5, with mild to moderate canal stenosis at C5-C6, and mild canal purvi nosis at C6-C7. No prevertebral soft tissue swelling. Impression: No acute fracture. Anterior fusion from C4 through C7, as detailed above. Moderate to advanced degenerative spondylitic changes, as detailed above. Minimal grade 1 anterolisthesis of C2 over C3. Reviewed, dictated and finalized at [facility]. Impression: No acute fracture. Anterior fusion from C4 through C7, as detailed above. Moderate to advanced degenerative spondylitic changes, as detailed above. Minimal grade 1 anterolisthesis of C2 over C3.
--- NOTE | 2023-01-19 23:29 | ED.NECK ---
HPI - Neck Pain/Injury General Chief Complaint: Neck Pain/Injury Stated Complaint: NECK PAIN S/P FALL Time Seen by Provider: 01/19/23 21:57 History of Present Illness HPI Narrative: This is an 87-year-old male with past history of dementia, brought in by EMS after fall at his [facility] this morning. EMS reports, the patient fell at an unknown time this morning and had no complaints until this evening, when he complained of some neck pain. Due to the patient's baseline dementia EMS placed a cervical collar. Patient was transferred for evaluation. Here the patient has no complaints. Related Data Home Medications Medication Instructions Recorded Confirmed acetaminophen 325 mg tablet 650 mg PO TID 12/24/22 12/24/22 (Tylenol) aspirin 81 mg tablet,delayed 81 mg PO DAILY 12/24/22 12/24/22 release (Adult Low Dose Aspirin) atorvastatin 20 mg tablet 20 mg PO DAILY 12/24/22 12/24/22 cyanocobalamin (vitamin B-12) 1,000 mcg IM MONTHLY 12/24/22 12/24/22 1,000 mcg/mL injection solution cyclosporine 0.05 % eye drops in a 1 drp EACH EYE BID 12/24/22 12/24/22 dropperette (Restasis) doxazosin 4 mg tablet 4 mg PO DAILY 12/24/22 12/24/22 ergocalciferol (vitamin D2) 1,250 1,250 mcg feeding tube 2XW 12/24/22 12/24/22 mcg (50,000 unit) capsule fesoterodine 4 mg tablet,extended 4 mg PO DAILY 12/24/22 12/24/22 release 24 hr flecainide 100 mg tablet 100 mg PO Q12H 12/24/22 12/24/22 fluticasone propionate 50 2 spray intranasal DAILY 12/24/22 12/24/22 mcg/actuation nasal spray,suspension potassium chloride 20 mEq 20 meq PO DAILY 12/24/22 12/24/22 tablet,extended release tamsulosin 0.4 mg capsule 0.4 mg PO DAILY 12/24/22 12/24/22 venlafaxine 75 mg capsule,extended 75 mg PO DAILY 12/24/22 12/24/22 release 24 hr Allergies Allergy/AdvReac Type Severity Reaction Status Date / Time No Known Allergies Allergy Verified 12/24/22 08:15 Review of Systems Review of Systems: CONSTITUTIONAL: Denies fever, chills, or sweats. CARDIOVASCULAR: Denies chest pain, palpitations, or edema. RESPIRATORY: Denies cough or dyspnea. GASTROINTESTINAL: Denies abdominal pain, nausea, vomiting, or diarrhea. GENITOURINARY: Denies dysuria or hematuria. SKIN: Denies rash or itching. MUSCULOSKELETAL: Mild neck pain denies back pain, joint pain, or myalgia. NEUROLOGIC: Denies headache, numbness, dizziness, or weakness. PSYCHIATRIC: Denies anxiety or depression. [facility] Past Medical History Medical History Acid reflux Allergies Anemia Anxiety Bilateral lower extremity edema BPH (benign prostatic hyperplasia) Congestive heart failure (CHF) Depression Essential (primary) hypertension Malignant neoplasm of prostate Mixed hyperlipidemia Paroxysmal atrial fibrillation Vitamin B 12 deficiency Surgical History Surgical History Hx of fusion of cervical spine Family History Family History Sibling Carcinoma of colon Family history of diabetes mellitus in first degree relative Family history of malignant neoplasm of urinary bladder Mother Acute myocardial infarction Other Cerebrovascular accident Diabetes mellitus Family history of Alzheimer's disease Family history of arthritis Family history of atrial fibrillation Family history of cardiovascular disease Family history of congestive heart failure Family history of hearing loss Family history of kidney disease Hypertension Social History Social History Smoking status: Never smoker Smoking end date: 06/29/1956 Alcohol intake: never Substance use: never Substance use type: does not use Lack of Transportation: No Lack of Food: Never True Current Housing: I Have Housing Concerned About Future Housing: No Difficulty Paying Gas/Electric
== END 2023-01-19 23:50 ==
PROVIDERS: Emergency Provider Preventive Medicine Aerospace Medicine; PCP Family Medicine
DX: S16.1XXA Strain of muscle, fascia and tendon at neck level, initial encounter (principal); F03.90 Unspecified dementia, unspecified severity, without behavioral disturbance, psychotic disturbance, mood disturbance, and anxiety; I50.9 Heart failure, unspecified; I11.0 Hypertensive heart disease with heart failure; E78.2 Mixed hyperlipidemia; I48.0 Paroxysmal atrial fibrillation; E53.8 Deficiency of other specified B group vitamins; K21.9 Gastro-esophageal reflux disease without esophagitis; N40.0 Benign prostatic hyperplasia without lower urinary tract symptoms; F41.9 Anxiety disorder, unspecified; Z85.46 Personal history of malignant neoplasm of prostate; Z86.2 Personal history of diseases of the blood and blood-forming organs and certain disorders involving the immune mechanism; Z87.891 Personal history of nicotine dependence; Z98.1 Arthrodesis status; W19.XXXA Unspecified fall, initial encounter
CPT/HCPCS: 70450; 72125; 99284